=== PATIENT | female | born 1985 | race Hispanic/Latino ===

== ENCOUNTER 2017-04-27 08:15 | Emergency (ER) | payer OTHER ==
--- NOTE | 2017-04-27 10:59 | ULT ---
PELVIC ULTRASOUND INCLUDING TRANSABDOMINAL AND TRANSVAGINAL AND VASCULAR DUPLEX WITH COLOR AND SPECT RAL DOPPLER IMAGING: Date: 04/27/17 HISTORY: 31-year-old female with sharp left lower quadrant abdominal pain with cramping. FINDINGS: The uterus measures 9.6 x 4.8 x 4.3 cm. Endometrium is 0.6 cm. Right ovary measures 1.8 x 2.0 x 3.0 cm. Left ovary measures 3.1 x 3.7 x 3.7 cm with a 2.4 x 2.6 x 3.1 cm cyst. There is a 2.1 x 2.7 x 2. 8 cm intrauterine fibroid. Incidental nabothian cyst. Vascular duplex with color and spectral Doppler imaging demonstrates arterial inflow and venous outf low without evidence for ovarian torsion. IMPRESSION: Small intrauterine fibroid and small left ovarian cyst. POS: [facility]
[2017-04-27 11:21] LABS: Bilirubin Negative (Negative); Blood, Urine Negative (Negative); Glucose, Urine (Dipstick) 250 mg/dL (Negative); Ketone, Urine Trace mg/dL (Negative); Nitrite Negative (Negative); Protein, Urine (Dipstick) Negative (Neg-Trace); Urobilinogen 0.2 mg/dL (0.2-1.0)
[2017-04-27] MEDS ORDERED: Ketorolac Tromethamine 60 MG/2 ML VIAL ONE (11:26)
[2017-04-27 13:37] LABS: #Basophils 0.1 thou/uL (0.0-0.2); #Eosinphils 0.4 thou/uL (0.0-0.7); #Monocytes 0.6 thou/uL (0.11-0.59); #Neutrophils 5.5 thou/uL (1.40-6.50); %Basophils 0.8 % (0.0-1.0); %Eosinophils 5.1 % (0.0-10.0); %Lymphocytes 23.1 % (21.0-51.0); %Monocytes 6.6 % (0.0-10.0); Hematocrit 40.8 % (36.0-47.0); Mean Platelet Volume 6.4 fL (7.4-10.4); Red Blood Cell (RBC) Count 4.53 mill/uL (4.20-5.40); White Blood Cell (WBC) Count 8.6 thou/uL (4.8-10.8)
--- NOTE | 2017-04-27 14:34 | RAD ---
ABDOMEN ONE VIEW: History: Abdominal pain. FINDINGS: Gas and stool are apparent throughout the colon and rectum. Small bowel gas pattern is nonspecific. No abnormal abdominal calcifications are evident. IMPRESSION: 1. No significant abnormalities are demonstrated. POS: [facility]
== END 2017-04-27 14:52 | disposition home or self-care (01) ==
LOC: ERS 08:15
DX: K59.00 Constipation, unspecified (principal); F17.210 Nicotine dependence, cigarettes, uncomplicated; Z79.84 Long term (current) use of oral hypoglycemic drugs; Z79.899 Other long term (current) drug therapy
CPT/HCPCS: 36415; 74000; 76856; 81003; 81025; 85025; 87086; 96372; 99406; J1885

== ENCOUNTER 2017-09-21 05:10 | Emergency (ER) | payer OTHER ==
[2017-09-21 05:37] LABS: #Basophils 0.1 thou/uL (0.0-0.2); #Eosinphils 0.2 thou/uL (0.0-0.7); #Lymphocytes 2.7 thou/uL (1.20-3.40); #Monocytes 0.5 thou/uL (0.11-0.59); %Basophils 0.6 % (0.0-1.0); %Lymphocytes 23.6 % (21.0-51.0); %Monocytes 4.1 % (0.0-10.0); %Neutrophils 69.7 % (42.0-75.0); Hemoglobin 14.1 g/dL (12.0-16.0); Mean Corpuscular HGB CONC 34.9 g/dL (32.0-36.0); Mean Corpuscular Hemoglobin 30.2 pg (27.0-31.0); Mean Corpuscular Volume 86.5 fl (81.0-99.0); Mean Platelet Volume 6.3 fL (7.4-10.4); Platelet Count 376 thou/uL (130-400); RBC Distribution Width 11.9 % (11.5-14.5); Red Blood Cell (RBC) Count 4.67 mill/uL (4.20-5.40); White Blood Cell (WBC) Count 11.4 thou/uL (4.8-10.8)
[2017-09-21 05:59] LABS: ALT (SGPT) 21 U/L (8-55); AST (SGOT) 15 U/L (5-34); Albumin 4.3 g/dL (3.5-5.0); Alkaline Phosphatase 69 U/L (40-150); Anion Gap 13 mmol/L (10-20); BUN (Urea Nitrogen) 8 mg/dL (7.0-18.7); Bilirubin, Total 0.6 mg/dL (0.2-1.2); CK (CPK) 93 U/L (29-168); Calc. Creatinine Clearance 0 mL/min (70-130); Calcium 9.6 mg/dL (7.8-10.44); Carbon Dioxide 23 mmol/L (22-29); Chloride 105 mmol/L (98-107); Estimated GFR-MDRD 82; Globulin 3.4 g/dL (2.4-3.5); Glucose 210 mg/dL (70-105); Potassium 3.8 mmol/L (3.5-5.1); Protein, Total 7.7 g/dL (6.0-8.3); Sodium 137 mmol/L (136-145)
[2017-09-21 06:04] LABS: Troponin I Less than 0.010 ng/mL (< 0.028)
[2017-09-21] MEDS ORDERED: Ketorolac Tromethamine 30 MG/ML VIAL ONE (06:35)
--- NOTE | 2017-09-21 08:49 | RAD ---
FRONTAL VIEW CHEST: Date: 09/21/17 INDICATION: New onset chest pain. FINDINGS: There is no consolidation, effusion, or pneumothorax. Lungs are hypoinflated. Cardiac silhouette is a ccentuated. IMPRESSION: No focal consolidation. POS: [facility]
--- NOTE | 2017-10-01 16:09 | EKG ---
Test Reason : CHEST PAIN Blood Pressure : / mmHG Vent. Rate : 084 BPM Atrial Rate : 084 BPM P-R Int : 168 ms QRS Dur : 090 ms QT Int : 380 ms P-R-T Axes : 012 019 014 degrees QTc Int : 449 ms Normal sinus rhythm No STEMI Normal ECG Confirmed by AUDRA Mario, WAI ([id number]), commissioning editor FLIP VAZQUEZ ([id number] on 10/01/2017 4:08:21 PM Referred By: AUDRA Confirmed By:WAI ZHU M.D.
== END 2017-09-21 06:54 | disposition home or self-care (01) ==
LOC: ERS 05:10
DX: M94.0 Chondrocostal junction syndrome [Tietze] (principal); E28.2 Polycystic ovarian syndrome; F17.210 Nicotine dependence, cigarettes, uncomplicated; Z79.899 Other long term (current) drug therapy
CPT/HCPCS: 36415; 71045; 80053; 82550; 82553; 84484; 85025; 93005; 96372; J1885

== ENCOUNTER 2017-11-03 16:23 | Emergency (ER) | payer OTHER ==
[2017-11-03 17:31] LABS: Bilirubin Negative (Negative); Blood, Urine Negative (Negative); Clarity CLEAR (Clear); Glucose, Urine (Dipstick) 500 mg/dL (Negative); Leukocyte Moderate (Negative); Nitrite Negative (Negative); Protein, Urine (Dipstick) Negative (Neg-Trace); Specific Gravity, Urine 1.026 (1.002-1.036)
[2017-11-03 17:33] LABS: Bacteria/HPF None Seen HPF (None Seen); Hyaline Casts/LPF 0-3 HYALINE CAST LPF (0-3 Hyaline); RBC/HPF 0-3 HPF (0-3)
[2017-11-03] MEDS ORDERED: Acetaminophen 500 MG TAB ONE (17:35)
[2017-11-03 17:40] LABS: Pregnancy Test - Urine (BHCG) Negative (Negative); Pregu Control Background? CLEAR/WHITE (CLR/WHITE); Pregu Control Bar Appear? YES (CONTROL BAR); Specific Gravity 1.026 (1.002-1.036)
[2017-11-03 18:21] LABS: Anion Gap 14 mmol/L (10-20); BUN (Urea Nitrogen) 14 mg/dL (7.0-18.7); Calc. Creatinine Clearance 0 mL/min (70-130); Calcium 9.3 mg/dL (7.8-10.44); Carbon Dioxide 19 mmol/L (22-29); Chloride 106 mmol/L (98-107); Estimated GFR-MDRD 73; Glucose 248 mg/dL (70-105); Potassium 3.6 mmol/L (3.5-5.1); Sodium 135 mmol/L (136-145)
--- NOTE | 2017-11-03 19:34 | ULT ---
TRANSABDOMINAL PELVIC ULTRASOUND: 11/03/17 INDICATION: Abdominal pain. Pelvic pain with possible history of . TECHNIQUE: Gandhi scale, color doppler with spectral doppler images were obtained in a pelvis via transabdominal a pproach. FINDINGS: The uterus measures 7.1 x 4.1 x 5.2 cm. The endometrial stripe measures 4.7 mm. No intrauterine gesta tion is evident. No free fluid is evident. The right ovary measures 3.2 x 2.4 x 2.2 cm. The left ovar y measures 2.8 x 2.2 x 2 cm. IMPRESSION: 1. No intrauterine gestation demonstrated. Recommend correlation with baseline HCG. Findings can be related to early , missed or ectopic . 2. No free fluid demonstrated. POS: [facility]
[2017-11-05 00:51] LABS: Chlamydia by PCR Not Detected (NotDetected); GC by PCR Not Detected (NotDetected)
== END 2017-11-03 19:47 | disposition home or self-care (01) ==
LOC: ERS 16:23
DX: N76.0 Acute vaginitis (principal); F17.210 Nicotine dependence, cigarettes, uncomplicated
CPT/HCPCS: 36415; 76856; 80048; 81003; 81015; 81025; 84702; 86900; 86901; 87480; 87491; 87510; 87591; 87660

== ENCOUNTER 2020-10-04 14:02 | Outpatient (CLI) | payer OTHER ==
[2020-10-04 14:28] LABS: Estimated GFR-MDRD - POC Greater than 90
[2020-10-04] MEDS ORDERED: Magnevist 469MG/ML 20 ML VIAL ONE (15:01)
== END 2020-10-04 14:03 | disposition home or self-care (01) ==
LOC: BICMRI 14:02
PROVIDERS: ATTEND Nurse Practitioner Acute Care
DX: G43.109 Migraine with aura, not intractable, without status migrainosus (principal)
CPT/HCPCS: 70553; 82565; A9579